=== PATIENT | female | born 1985 | race Hispanic/Latino ===

== ENCOUNTER 2018-09-23 21:47 | Emergency (ER) | payer OTHER ==
[2018-09-23 22:48] VITALS: O2SAT 100
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
[2018-09-27 18:50] VITALS: BP 100/68; PULSE 71; RESP 20; TEMP 98.5
== END 2018-09-23 23:49 | disposition home or self-care (01) ==
LOC: H.EROB2 21:47 → H.ER 21:47 → H.EROB2 23:49
DX: O26.92 Pregnancy related conditions, unspecified, second trimester (principal); S13.9XXA Sprain of joints and ligaments of unspecified parts of neck, initial encounter; R10.2 Pelvic and perineal pain; Z3A.26 26 weeks gestation of pregnancy; O9A.212 Injury, poisoning and certain other consequences of external causes complicating pregnancy, second trimester; S13.4XXA Sprain of ligaments of cervical spine, initial encounter; O26.892 Other specified pregnancy related conditions, second trimester